=== PATIENT | female | born 1935 | race Caucasian/White ===

== ENCOUNTER 2016-11-26 13:42 | Inpatient (IN) | payer MEDICARE, BC ==
[2016-11-26] MEDS ORDERED: Ondansetron 4 MG Tab.DIS PO PRN (17:37)
[2016-11-26] MEDS ORDERED: Polyethylene Glycol 3350 Powder 17 GM Packet PO PRN (17:37)
[2016-11-26] MEDS ORDERED: Docusate Sodium 100 MG Cap PO PRN (17:37)
[2016-11-26] MEDS ORDERED: Bisacodyl 5 MG Tab PO PRN (17:37)
[2016-11-26] MEDS ORDERED: Temazepam 15 MG Cap PO PRN (17:37)
[2016-11-26] MEDS ORDERED: Acetaminophen 325 MG Tab PO PRN (17:42)
--- NOTE | 2016-11-26 18:25 | HP ---
CHIEF COMPLAINT: Status post left total knee arthroplasty, being admitted to swing bed for continued physical therapy and occupational therapy. HISTORY OF PRESENTING ILLNESS: Mrs. Constanza Hopkins is an 80-year-old female with medical history significant for hypertension, type 2 diabetes mellitus, hyperlipidemia, gastroesophageal reflux disease, osteoarthritis, hypothyroidism, obesity, osteopenia, and history of skin cancer in the past, status post tonsillectomy and adenoidectomy. She is status post left total knee arthroplasty on 11/23/2016 under the spinal anesthesia and currently being admitted to the swing bed. At this time, patient complains of mild pain at the surgical site, which is the left knee, only 2/10 in intensity, dull in nature, aggravated on ambulation, relieved with pain medication, nonradiating type of pain, not associated with any nausea or vomiting. Denies any chest pain. No shortness of breath. No abdominal pain. No fevers. No chills in the last few days. She did not receive any blood transfusion. The patient denied any history of chest pains on exertion. No history of dyspnea on exertion. No history of orthopnea or paroxysmal nocturnal dyspnea. The patient denied any history of hematemesis, hematochezia, or melanotic stools. Normal bowel and bladder habits otherwise. She denied any history of hematemesis, hematochezia, or melanotic stools. REVIEW OF SYSTEMS: A complete review of system including skin, ear, nose, and throat, cardiovascular system, respiratory system, gastrointestinal system, genitourinary system, Hematology, Oncology, Neurology, allergy, Immunology were all evaluated and were negative except for the above-said notes. PAST MEDICAL HISTORY: Significant for hypertension, type 2 diabetes mellitus, hyperlipidemia, gastroesophageal reflux disease, osteopenia, history of skin cancer in the past. PAST SURGICAL HISTORY: Significant for: 1. Carpal tunnel release. 2. Cholecystectomy. 3. Colonoscopy. 4. Tonsillectomy and adenoidectomy. 5. Right total knee arthroplasty in the past. FAMILY HISTORY: Significant for breast cancer in her sister. SOCIAL HISTORY: The patient denied any history of tobacco smoking. No history of alcohol intake. ALLERGIES: The patient noted to have allergies to enalapril, raloxifene, TriCor, and Miacalcin. PHYSICAL EXAMINATION: General: The patient is well oriented to time, place, and person. Follows commands spontaneously. Cardiovascular System: S1, S2 heard with normal intensity. No gallops. Respiratory System: Clear to auscultation bilaterally. No wheeze. No crepitations. Abdomen: Soft. Bowel sounds are positive. Nontender. No rigidity. Extremities: No edema in bilateral lower extremities. Surgical dressing noted on the left knee. Neurology: No gross focal neurological deficit. HOME MEDICATIONS: Reviewed. 1. Ultram 50 mg every 6 hours. 2. Norvasc 5 mg daily. 3. Celebrex 200 mg twice a day. 4. Metformin 500 mg twice a day. 5. Lipitor 40 mg at bedtime. 6. Senokot with docusate sodium 2 tablets twice a day. 7. Omeprazole 20 mg daily. 8. Levothyroxine 150 mcg daily. 9. Hydrochlorothiazide with losartan half a tablet daily. 10.Amaryl 1 mg daily. 11.Aspirin 325 mg daily. 12.Tylenol 650 every 4 hours as needed. LABORATORY DATA: As reviewed from the outlying facility. 1. WBC 9, hemoglobin 11.4, hematocrit 34.8, platelet count 171. 2. Sodium 136, potassium 4.3, chloride 96, bicarb 26, phosphorus 3.3, albumin 3.9, BUN 15, creatinine 0.6. 3. Alkaline phosphatase 50, AST 25, ALT 17, direct bilirubin less than 0.2, protein 6.2. 4. Status post left total knee arthroplasty on 11/23/2016. 5. Hypertension. 6. Hyperlipidemia. 7. Type 2 diabetes mellitus. 8. Obesity. 9. Osteopenia. 10.Gastroesophageal reflux disease. PLAN: 1. Status post left total knee arthroplasty. The patient will be evaluated by Physical Therapy and Occupational Therapy. We will have a daily exercise program while in the swing bed. The patient is using a walker at this time. We will continue the same. The patient denies any ongoing pain. She has mild pain, we will continue with oral pain medications as needed for better control of the pain. 2. Hypertension. The patient's blood pressure seems to be well controlled. Continue with current antihypertensive medication. She usually takes Hyzaar at home, we will continue the same. 3. Type 2 diabetes mellitus. The patient is on glimepiride and metformin. We will continue the same. Check her fingersticks with each meals and have her on supplemental scale insulin as needed for additional coverage of her blood glucose. 4. Hyperlipidemia. She is currently on Lipitor, continue the same. 5. Deep venous thrombosis prophylaxis. We will have her on Lovenox for deep venous thrombosis prophylaxis in the postoperative period. 6. Code status. The patient wants to be full code. [facility] /[id number]
[2016-11-26] MEDS: metFORMIN 500 MG Tab PO SCH (19:22)
[2016-11-26] MEDS: traMADol 50 MG Tab PO SCH (19:23)
[2016-11-26] MEDS: atorvaSTATin 20 MG Tab PO SCH (20:55)
[2016-11-26] MEDS: Celecoxib 100 MG Cap PO SCH (20:56)
[2016-11-26] MEDS: Aspirin 325 MG Tab.EC PO SCH (20:57)
[2016-11-27] MEDS: traMADol 50 MG Tab PO SCH ×5 (00:28→23:50)
[2016-11-27] MEDS: Levothyroxine 150 MCG Tab PO SCH (05:46)
[2016-11-27] MEDS ORDERED: Enoxaparin 30 MG/0.3 ML Syringe SUBCUT SCH (09:00)
[2016-11-27] MEDS: Glimepiride 2 MG Tab PO SCH (10:19)
[2016-11-27] MEDS: Celecoxib 100 MG Cap PO SCH ×2 (10:20→21:04)
[2016-11-27] MEDS: metFORMIN 500 MG Tab PO SCH ×2 (10:20→19:10)
[2016-11-27] MEDS: Omeprazole 20 MG Cap.CR PO SCH (10:20)
[2016-11-27] MEDS: Aspirin 325 MG Tab.EC PO SCH ×2 (10:21→21:04)
[2016-11-27] MEDS: amLODIPine 5 MG Tab PO SCH (10:24)
[2016-11-27] MEDS: HYDROCHLOROTHIAZIDE 12.5 MG PO SCH (10:25)
[2016-11-27] MEDS: LOSARTAN 100 MG PO SCH (10:25)
[2016-11-27] MEDS: Insulin Aspart 100 Units/ML 3 ML Pen SUBCUT SCH ×3 (13:29→21:05)
[2016-11-27] MEDS: atorvaSTATin 20 MG Tab PO SCH (21:05)
[2016-11-28] MEDS: Levothyroxine 150 MCG Tab PO SCH (06:03)
[2016-11-28] MEDS: traMADol 50 MG Tab PO SCH ×3 (06:03→17:46)
[2016-11-28 08:38] LABS: CHLORIDE,CL 100 mmol/L (101-111); SODIUM,NA 138 mmol/L (135-145)
[2016-11-28] MEDS: Omeprazole 20 MG Cap.CR PO SCH (09:26)
[2016-11-28] MEDS: Celecoxib 100 MG Cap PO SCH ×2 (09:26→21:10)
[2016-11-28] MEDS: Insulin Aspart 100 Units/ML 3 ML Pen SUBCUT SCH ×4 (09:26→21:11)
[2016-11-28] MEDS: Glimepiride 2 MG Tab PO SCH (09:27)
[2016-11-28] MEDS: metFORMIN 500 MG Tab PO SCH ×2 (09:27→17:46)
[2016-11-28] MEDS: Aspirin 81 MG Tab.Chew PO SCH (09:27)
[2016-11-28] MEDS: amLODIPine 5 MG Tab PO SCH (09:28)
[2016-11-28] MEDS: HYDROCHLOROTHIAZIDE 12.5 MG PO SCH (09:33)
[2016-11-28] MEDS: LOSARTAN 100 MG PO SCH (09:33)
--- NOTE | 2016-11-28 10:27 | PN ---
DATE: 11/28/2016 SUBJECTIVE: Ms. Constanza Wagner is an 80-year-old female with medical history significant for hypertension, type 2 diabetes mellitus, hyperlipidemia, gastroesophageal reflux disease, osteoarthritis, hypothyroidism. She is status post left total knee arthroplasty on 11/23/2016 under spinal anesthesia, and admitted to the swing bed. For the last 24 hours, the patient was noted to have increased secretions around the left knee joint. She was noted to have more of a serosanguineous discharge from the left knee. She denies any ongoing pain at this time. No fevers. No chills. No chest pain. No shortness of breath. No abdominal pain. No nausea. No vomiting. No diarrhea. REVIEW OF SYSTEMS: Cardiovascular, respiratory, gastrointestinal, neurology, constitutional were all evaluated. PHYSICAL EXAMINATION: Vital Signs: Temperature of 98.6, pulse of 77, blood pressure 132/59, respiratory rate of 20, saturating at 93% on room air. General Appearance: The patient is well oriented to time, place, and person. Follows commands spontaneously. Cardiovascular System: S1, S2 heard with normal intensity. No gallops. Respiratory System: Clear to auscultation bilaterally. No wheeze. No crepitations. Abdomen: Soft. Bowel sounds positive. Nontender. No rigidity. Extremities: No edema in bilateral lower extremities. The patient noted to have a surgical scar with vinnie on the left knee. Serosanguineous drainage noted from the left knee. No evidence of cellulitis noted at this time. Swelling noted around the joint. MEDICATIONS: Reviewed. 1. Continue with Norvasc 5 mg daily. 2. Tylenol 650 every 4 hours as needed for pain. 3. Aspirin 81 mg daily. 4. Lipitor 40 mg at bedtime. 5. Celebrex 200 mg twice a day. 6. Docusate sodium 100 mg twice a day. 7. Amaryl 1 mg daily. 8. NovoLog supplemental scale. 9. Levothyroxine 150 mcg daily. 10.Metformin 500 mg twice a day. 11.Omeprazole 20 mg daily. 12.MiraLax 17 g daily as needed. 13.Tramadol 50 mg every 6 hours for pain. LABORATORY DATA: WBC 7.1, hemoglobin 10.5, hematocrit 32.7, platelet count 213. Blood glucose 152. ASSESSMENT: 1. Status post left total knee arthroplasty complicated with serosanguineous discharge. 2. Hypertension. 3. Type 2 diabetes mellitus. 4. Hyperlipidemia. PLAN: 1. Left total knee arthroplasty. The patient is status post surgery on November 23, and now she is having some serosanguineous discharge. She is noted to have mild hematoma around the knee joint. Discussed with Dr. Farshad Diaz over the phone and advised to continue with dressing with Bakari wrap and pressure dressing to decrease the drainage. We will closely follow the patient. No signs of infection identified at this time, but we will closely follow. Given her history of diabetes, she might be at risk for infection. Willing to do daily dressings at this time or at least twice a day if needed. 2. Hypertension. The patient's blood pressure seems to be well controlled. Continue with current treatment plan. 3. Type 2 diabetes mellitus, improved. Continue with insulin supplemental scale. Continue with oral agents and try to avoid any hyperglycemic or hypoglycemic episodes. 4. Anemia. This is anemia due to acute blood loss. Hemoglobin remained stable at 10.5. Closely follow. 5. Deep vein thrombosis prophylaxis secondary to the hematoma and possible hemarthrosis. We had to decrease the aspirin to 81 mg daily, and since there is increased risk of bleeding, the patient could not be placed on any heparin products for now. We will use SCDs or BEBETO hose for DVT prophylaxis and encourage the patient to ambulate around as much as possible and have her on her leg exercises to avoid any DVTs. [facility] /[id number]
[2016-11-28] MEDS: atorvaSTATin 20 MG Tab PO SCH (21:11)
[2016-11-29] MEDS: traMADol 50 MG Tab PO SCH ×5 (05:06→23:51)
[2016-11-29] MEDS: Levothyroxine 150 MCG Tab PO SCH (06:39)
[2016-11-29] MEDS: Insulin Aspart 100 Units/ML 3 ML Pen SUBCUT SCH ×4 (08:44→22:34)
[2016-11-29] MEDS: Aspirin 81 MG Tab.Chew PO SCH (09:39)
[2016-11-29] MEDS: Celecoxib 100 MG Cap PO SCH ×2 (09:39→22:38)
[2016-11-29] MEDS: Omeprazole 20 MG Cap.CR PO SCH (09:40)
[2016-11-29] MEDS: amLODIPine 5 MG Tab PO SCH (09:40)
[2016-11-29] MEDS: metFORMIN 500 MG Tab PO SCH ×2 (09:40→17:41)
[2016-11-29] MEDS: Glimepiride 2 MG Tab PO SCH (09:42)
[2016-11-29] MEDS: HYDROCHLOROTHIAZIDE 12.5 MG PO SCH (10:48)
[2016-11-29] MEDS: LOSARTAN 100 MG PO SCH (10:48)
--- NOTE | 2016-11-29 13:34 | PN ---
DATE: 11/29/2016 SUBJECTIVE: Mrs. Constanza Wagner is an 80-year-old female with medical history significant for hypertension, type 2 diabetes mellitus, hyperlipidemia, gastroesophageal reflux disease, osteoarthritis, hypothyroidism, status post left total knee arthroplasty on 11/23/2016 under spinal anesthesia and admitted to [facility] bed for continued physical therapy and occupational therapy. For the last 24 hours, the patient continues to have the serosanguineous drainage from the left knee side. Discussed with Dr. Gilmer Diaz, her primary Orthopedic surgeon, who has advised for daily dressings with a Crepe band and pressure dressings to prevent her from bleeding. We did change her aspirin to 81 mg daily. She denies any ongoing chest pain. No shortness of breath. No abdominal pain. No nausea. No vomiting. No diarrhea. No fevers. No chills. The patient denies any increasing pain to the left knee. REVIEW OF SYSTEMS: Cardiovascular, respiratory, gastrointestinal, Neurology, constitutional were all evaluated. PHYSICAL EXAMINATION: Vital Signs: Temperature of 98.4, pulse of 72, blood pressure 145/65, respiratory rate of 20, saturating at 95% on room air. General Appearance: The patient is well oriented to time, place, and person. Follows commands spontaneously. Cardiovascular System: S1, S2 heard with normal intensity. No gallops. Respiratory: Clear to auscultation bilaterally. No wheeze. No crepitations. Abdomen: Soft. Bowel sounds are positive. Nontender. No rigidity. Extremities: Mild edema noted on the left lower extremity and serosanguineous drainage noted from the suture site. [place] intact. No evidence of erythema. No evidence of tenderness around the joints except for mild swelling around the joint on the left knee. Pulses felt well. MEDICATIONS: Reviewed. 1. Continue with Tylenol 650 every 4 hours as needed for pain. 2. Norvasc 5 mg daily. 3. Aspirin 81 mg daily. 4. Lipitor 40 mg at bedtime. 5. Dulcolax 5 mg as needed for constipation. 6. Celebrex 200 mg twice a day. 7. Docusate sodium 100 mg twice a day. 8. Amaryl 1 mg daily. 9. NovoLog supplemental scale. 10.Levothyroxine 150 mcg daily. 11.Metformin 500 mg twice a day. 12.Losartan with hydrochlorothiazide daily. 13.Omeprazole 20 mg daily. 14.MiraLax 17 g oral daily. 15.Temazepam 15 mg at bedtime. 16.Ultram 50 mg every 6 hours as needed for pain. LABORATORY DATA: Reviewed. No new labs ordered for today. The patient did not have any leukocytosis from yesterday's lab. ASSESSMENT: 1. Status post left total knee arthroplasty, complicated with serosanguineous discharge at this time. 2. Hypertension. 3. Hyperlipidemia. 4. Type 2 diabetes mellitus. PLAN: 1. Left knee arthroplasty. Patient had this knee surgery on 11/23 and is currently in swing bed. She is noted to have some serosanguineous discharge from the left knee site. Contact Dr. Farshad Diaz, her primary Orthopedic yesterday and has recommended for continued pressure dressing. We will try to reach his office again to update the patient's situation. She denies any pain. No signs of infection identified at this time. Continue physical therapy and occupational therapy. Continue the pressure dressing and Bakari wrap and we will closely follow. 2. Type 2 diabetes mellitus. The patient noted to be on oral agents and supplemental scale insulin, continue the same. Check her fingersticks with each meals. Have her on supplemental scale insulin also. Try to maintain glycemic levels below 140. 3. Hypertension. The patient's blood pressure seems to be well controlled. Continue with current medications. 4. Deep venous thrombosis prophylaxis. As she is noted to have possible hemarthrosis and serosanguineous discharge, we are not able to give her any heparin products or high dose of aspirin. We had to cut down on aspirin to 81 mg daily to avoid any further bleeding complications on the joint. We will closely follow. The patient is advised to put on BEBETO hose for deep venous thrombosis prophylaxis. She is encouraged to do some exercises for ankle and also ambulate around at least 2 to 3 times a day to avoid any DVTs, which she understands and verbalized the same. [facility] /[id number]
[2016-11-29] MEDS: atorvaSTATin 20 MG Tab PO SCH (22:38)
[2016-11-30] MEDS: Levothyroxine 150 MCG Tab PO SCH (06:31)
[2016-11-30] MEDS: traMADol 50 MG Tab PO SCH ×3 (06:31→18:28)
[2016-11-30] MEDS: Insulin Aspart 100 Units/ML 3 ML Pen SUBCUT SCH ×4 (08:26→22:18)
[2016-11-30] MEDS: Celecoxib 100 MG Cap PO SCH ×2 (09:00→22:20)
[2016-11-30] MEDS: Omeprazole 20 MG Cap.CR PO SCH (09:02)
[2016-11-30] MEDS: metFORMIN 500 MG Tab PO SCH ×2 (09:03→18:28)
[2016-11-30] MEDS: amLODIPine 5 MG Tab PO SCH (09:03)
[2016-11-30] MEDS: Glimepiride 2 MG Tab PO SCH (09:05)
[2016-11-30] MEDS: Aspirin 81 MG Tab.Chew PO SCH (09:05)
[2016-11-30] MEDS: HYDROCHLOROTHIAZIDE 12.5 MG PO SCH (09:07)
[2016-11-30] MEDS: LOSARTAN 100 MG PO SCH (09:07)
[2016-11-30 10:56] LABS: CHLORIDE,CL 100 mmol/L (101-111); SODIUM,NA 137 mmol/L (135-145)
[2016-11-30] MEDS: atorvaSTATin 20 MG Tab PO SCH (22:20)
[2016-12-01] MEDS: traMADol 50 MG Tab PO SCH ×3 (00:02→11:57)
[2016-12-01] MEDS: Levothyroxine 150 MCG Tab PO SCH (06:02)
[2016-12-01 07:56] VITALS: BP 133/62
[2016-12-01] MEDS: Glimepiride 2 MG Tab PO SCH (08:07)
[2016-12-01] MEDS: Aspirin 81 MG Tab.Chew PO SCH (08:07)
[2016-12-01] MEDS: Omeprazole 20 MG Cap.CR PO SCH (08:07)
[2016-12-01] MEDS: Insulin Aspart 100 Units/ML 3 ML Pen SUBCUT SCH ×2 (08:07→11:58)
[2016-12-01] MEDS: Celecoxib 100 MG Cap PO SCH (08:07)
[2016-12-01] MEDS: metFORMIN 500 MG Tab PO SCH (08:07)
[2016-12-01] MEDS: amLODIPine 5 MG Tab PO SCH (08:08)
[2016-12-01] MEDS: LOSARTAN 100 MG PO SCH (08:10)
[2016-12-01] MEDS: HYDROCHLOROTHIAZIDE 12.5 MG PO SCH (08:10)
[2016-12-01] MEDS ORDERED: FLU VAC QS 17-18(4YR UP)CEL/PF 60 MCG/0.5 ML Syringe IM ONE (11:25)
--- NOTE | 2016-12-02 05:10 | DISCH ---
ADMITTING DIAGNOSES: 1. Left knee arthroplasty. 2. Requiring physical therapy and occupational therapy while in the swing bed. DISCHARGE DIAGNOSES: 1. Status post left knee total arthroplasty, complicated with serosanguineous discharge from the left knee site. 2. The patient is able to ambulate with the help of walker with continued physical therapy and occupational therapy. HISTORY OF PRESENTING ILLNESS: Mrs. Constanza Hopkins is an 80-year-old female with medical history significant for hypertension, type 2 diabetes mellitus, hyperlipidemia, gastroesophageal reflux disease, osteoarthritis, hypothyroidism, is status post left total knee arthroplasty on 11/23/2016 under spinal anesthesia and was admitted to the swing bed for continued physical therapy and occupational therapy. The patient had complications with her left total knee arthroplasty, where she was noted to have serosanguineous discharge and possible bleeding into the surgical site. The patient was on aspirin 325 mg twice a day for her DVT prophylaxis but secondary to her bleeding and as recommended by the Orthopedic Surgery, we changed aspirin to 81 mg daily. The patient is encouraged to ambulate around and exercise to avoid any DVTs in the postoperative period. She is also encouraged to use BEBETO hose to avoid any DVTs in the postoperative period. She responded well to the treatment. She is able to ambulate well with the help of walker. Physical Therapy and Occupational Therapy discharged the patient. She is being discharged home in stable condition. She is advised to follow with her orthopedic doctor tomorrow for further evaluation of the serosanguineous discharge, and she is advised to follow with her primary care physician as scheduled. DISCHARGE MEDICATIONS: Include: 1. Tylenol 650 every 4 hours as needed for pain. 2. Aspirin 81 mg daily. 3. Celebrex 200 mg twice a day. 4. Amaryl 1 mg daily. 5. Hydrochlorothiazide with losartan half a tablet daily. 6. Levothyroxine 150 mcg daily. 7. Omeprazole 20 mg daily. 8. Senokot with docusate sodium 2 tablets twice a day. 9. Norvasc 5 mg daily. 10.Lipitor 40 mg at bedtime. 11.Metformin 500 mg twice a day. 12.Tramadol 50 mg every 6 hours as needed for pain. PHYSICAL EXAMINATION: Vital Signs: On the day of discharge, vitals; temperature of 98, pulse of 77, blood pressure 133/62, respiratory rate of 20, saturating at 94% on room air. General Appearance: The patient is well oriented to time, place, and person. Follows commands spontaneously. Cardiovascular System: S1, S2 heard with normal intensity. No gallops. Respiratory System: Clear to auscultation bilaterally. No wheeze. No crepitations. Abdomen: Soft. Bowel sounds positive. Nontender. No rigidity. Extremities: No edema of bilateral lower extremities. Surgical wound noted on the left knee. No erythema and no tenderness noted at this time. No evidence of infection noted at this time. CONDITION ON ADMISSION: Poor. CONDITION ON DISCHARGE: Stable. DISPOSITION: Discharged to home. ACTIVITY: As tolerated. DIET: Cardiac healthy diet. FOLLOWUP: 1. Follow up with orthopedic doctor tomorrow at [place]. 2. Follow up with primary care physician as scheduled. Spent over 35 minutes of time in evaluating and treating this patient and making discharge plans. [facility] /[id number]
== END 2016-12-01 12:29 | disposition home or self-care (01) | DRG 560 ==
LOC: UNDOADMIN 14:30 → DL.MS 14:30
PROVIDERS: ADMIT Internal Medicine; ATTEND Internal Medicine
PROC: 3E0234Z Introduction of Serum, Toxoid and Vaccine into Muscle, Percutaneous Approach (ICD-10-PCS; principal; 2016-11-26)
DX: Z47.1 Aftercare following joint replacement surgery (principal); T84.54XA Infection and inflammatory reaction due to internal left knee prosthesis, initial encounter; D62 Acute posthemorrhagic anemia; Z96.652 Presence of left artificial knee joint; I10 Essential (primary) hypertension; E11.9 Type 2 diabetes mellitus without complications; Z79.84 Long term (current) use of oral hypoglycemic drugs; Z79.899 Other long term (current) drug therapy; E78.5 Hyperlipidemia, unspecified; K21.9 Gastro-esophageal reflux disease without esophagitis; E03.9 Hypothyroidism, unspecified; M19.90 Unspecified osteoarthritis, unspecified site; Z79.82 Long term (current) use of aspirin; Z23 Encounter for immunization
CPT/HCPCS: 36415; 80048; 82962; 85027; 85610; 90674; 97110-GO; 97110-GP; 97165-GO; 97530-GO; A9270-GY; J1815-GY

== ENCOUNTER 2023-04-15 06:43 | Inpatient (IN) | payer MEDICARE, OTHER ==
[2023-04-15 08:27] LABS: BASOPHILS PERCENT AUTO 0.3 % (0.0-1.0); EOSINOPHILS PERCENT AUTO 0.5 % (1.0-3.0); HEMATOCRIT 34.1 % (37.0-47.0); LYMPHOCYTES PERCENT AUTO 16.6 % (20.5-50.1); MEAN CORPUSCULAR HEMOGLOBIN 27.7 pg (27.0-34.0); MEAN CORPUSCULAR HGB CONC 32.3 g/dL (33.0-35.0); MEAN CORPUSCULAR VOLUME 85.9 fL (80-100); MONOCYTES PERCENT AUTO 7.2 % (2-8); NEUTROPHILS PERCENT AUTO 75.4 % (42.2-75.2); PLATELET COUNT,PLT 265 10^3/uL (150-450); RED BLOOD CELL COUNT 3.97 10^6/uL (4.2-5.4); WHITE BLOOD CELL COUNT,WBC 10.5 10^3/uL (5.0-10.0)
[2023-04-15] MEDS: Sodium Chloride 0.9% 10 ML Syringe FLUSH PRN (08:29)
[2023-04-15 08:46] LABS: A/G RATIO 0.79; ALBUMIN 3.1 g/dL (3.4-5.0); ANION GAP 13.3 mEq/L (7-13); BILIRUBIN TOTAL 0.8 mg/dL (0.2-1.0); BUN/CREATININE RATIO 16.3 (No establ ref range); CALCIUM 8.9 mg/dL (8.5-10.1); CREATININE 0.92 mg/dL (0.55-1.02); EST CRCL DRUG DOSING (CG) 37.3 mL/min; POTASSIUM,K 3.3 mmol/L (3.5-5.1)
[2023-04-15] MEDS ORDERED: Bisacodyl 5 MG Tab PO PRN (10:38)
[2023-04-15] MEDS ORDERED: Ondansetron 4 MG/2 ML SDV IVPUSH PRN (10:38)
[2023-04-15] MEDS ORDERED: Docusate Sodium 100 MG Cap PO PRN (10:38)
[2023-04-15] MEDS: Enoxaparin 30 MG/0.3 ML Syringe SUBCUT SCH (11:31)
[2023-04-15] MEDS: Potassium Chloride 10 MEQ Tab.ER PO ONE (17:18)
[2023-04-15] MEDS: metFORMIN 500 MG Tab PO SCH (17:19)
[2023-04-15] MEDS: atorvaSTATin 20 MG Tab PO SCH (21:11)
[2023-04-16] MEDS: Levothyroxine 150 MCG Tab PO SCH (05:44)
[2023-04-16] MEDS: Losartan 50 MG Tab PO SCH (08:30)
[2023-04-16] MEDS: Glimepiride 2 MG Tab PO SCH (08:30)
[2023-04-16] MEDS: Acetaminophen 325 MG Tab PO PRN (20:10)
[2023-04-17] MEDS: Acetaminophen/HYDROcodone 325-5 MG Tab PO PRN (23:39)
[2023-04-18 06:27] LABS: BASOPHILS PERCENT AUTO 0.4 % (0.0-1.0); EOSINOPHILS PERCENT AUTO 1.8 % (1.0-3.0); HEMOGLOBIN 10.7 g/dL (12.0-16.0); LYMPHOCYTES PERCENT AUTO 28.1 % (20.5-50.1); MEAN CORPUSCULAR HEMOGLOBIN 27.4 pg (27.0-34.0); MEAN CORPUSCULAR HGB CONC 31.5 g/dL (33.0-35.0); MEAN CORPUSCULAR VOLUME 87.2 fL (80-100); MONOCYTES PERCENT AUTO 11.3 % (2-8); NEUTROPHILS PERCENT AUTO 58.4 % (42.2-75.2); PLATELET COUNT,PLT 250 10^3/uL (150-450); WHITE BLOOD CELL COUNT,WBC 7.1 10^3/uL (5.0-10.0)
[2023-04-18 06:46] LABS: ANION GAP 10.6 mEq/L (7-13); CALCIUM 8.5 mg/dL (8.5-10.1); CREATININE 0.77 mg/dL (0.55-1.02); EST CRCL DRUG DOSING (CG) 46.37 mL/min; POTASSIUM,K 3.6 mmol/L (3.5-5.1)
[2023-04-18] MEDS: Potassium Chloride 10 MEQ Tab.ER PO ONE (07:59)
[2023-04-18] MEDS: Melatonin 3 MG Tab PO PRN (21:55)
[2023-04-19 10:23] VITALS: BP 151/73; PULSE 98
== END 2023-04-19 10:23 | disposition swing bed (61) | DRG 536 ==
LOC: DL.ED 06:43 → DL.MS 08:56
PROVIDERS: ADMIT Internal Medicine; ATTEND Internal Medicine
DX: S32.592A Other specified fracture of left pubis, initial encounter for closed fracture (principal); S32.512A Fracture of superior rim of left pubis, initial encounter for closed fracture; E11.42 Type 2 diabetes mellitus with diabetic polyneuropathy; E78.00 Pure hypercholesterolemia, unspecified; E11.9 Type 2 diabetes mellitus without complications; I10 Essential (primary) hypertension; Z66 Do not resuscitate; K21.9 Gastro-esophageal reflux disease without esophagitis; M19.90 Unspecified osteoarthritis, unspecified site; E03.9 Hypothyroidism, unspecified; E66.9 Obesity, unspecified; Z88.1 Allergy status to other antibiotic agents; Z68.39 Body mass index [BMI] 39.0-39.9, adult; W18.30XA Fall on same level, unspecified, initial encounter; E87.6 Hypokalemia; Z96.653 Presence of artificial knee joint, bilateral; Z88.8 Allergy status to other drugs, medicaments and biological substances; Z79.899 Other long term (current) drug therapy; Z79.84 Long term (current) use of oral hypoglycemic drugs; Z79.82 Long term (current) use of aspirin; Z68.30 Body mass index [BMI] 30.0-30.9, adult; Z98.49 Cataract extraction status, unspecified eye; Z98.890 Other specified postprocedural states; Z90.49 Acquired absence of other specified parts of digestive tract; Z97.8 Presence of other specified devices; W19.XXXA Unspecified fall, initial encounter
CPT/HCPCS: 36415; 80048; 80053; 85025; 93005; 97161-GP; 97165-GO; 99222; 99232; 99238; 99284; 99285; A9270-GY; J1650; J3490

== ENCOUNTER 2023-07-25 15:03 | Emergency (ER) | payer MEDICARE, OTHER ==
[2023-07-25] MEDS: Ondansetron 4 MG/2 ML SDV IV ONE (15:12)
[2023-07-25 15:16] VITALS: BP 120/61; PULSE 125
[2023-07-25] MEDS: Sodium Chloride 0.9% 10 ML Syringe FLUSH PRN (15:32)
[2023-07-25 15:38] LABS: BASOPHILS PERCENT AUTO 0.3 % (0.0-1.0); EOSINOPHILS PERCENT AUTO 0.3 % (1.0-3.0); HEMOGLOBIN 10.4 g/dL (12.0-16.0); LYMPHOCYTES PERCENT AUTO 21.8 % (20.5-50.1); MEAN CORPUSCULAR HEMOGLOBIN 25.9 pg (27.0-34.0); MEAN CORPUSCULAR HGB CONC 31.5 g/dL (33.0-35.0); MEAN CORPUSCULAR VOLUME 82.3 fL (80-100); MONOCYTES PERCENT AUTO 5.8 % (2-8); NEUTROPHILS PERCENT AUTO 71.8 % (42.2-75.2); PLATELET COUNT,PLT 440 10^3/uL (150-450); RED BLOOD CELL COUNT 4.01 10^6/uL (4.2-5.4); WHITE BLOOD CELL COUNT,WBC 12.4 10^3/uL (5.0-10.0)
[2023-07-25 15:56] LABS: LACTIC ACID 2.6 mmol/L (0.4-2.0)
[2023-07-25 16:00] LABS: ALBUMIN 2.8 g/dL (3.4-5.0); ANION GAP 15.4 mEq/L (7-13); BILIRUBIN TOTAL 0.6 mg/dL (0.2-1.0); C-REACTIVE PROTEIN 1.21 ng/dL (<=0.50); CREATININE 1.04 mg/dL (0.55-1.02); EST CRCL DRUG DOSING (CG) 35.66 mL/min; MAGNESIUM 1.1 mg/dL (1.8-2.4); POTASSIUM,K 3.4 mmol/L (3.5-5.1); PROTEIN TOTAL,TP 6.7 g/dL (6.4-8.2); TSH ULTRASENSITIVE 4.78 uIU/mL (0.36-3.74)
[2023-07-25 16:05] LABS: A/G RATIO 0.72
[2023-07-25] MEDS: Sodium Chloride 0.9% 500 ML IV SCH (16:21)
[2023-07-25] MEDS: Iopamidol 612 MG/ML 100 ML Bottle IVPUSH ONE (16:33)
[2023-07-25] MEDS: Piperacillin/Tazobactam 4.5 GM in Sodium Chloride 0.9% 100 ML IV ONE (16:40)
[2023-07-25] MEDS: Magnesium Sulfate/Water 2 GM in Premix Bag 1 BAG IV ONE (17:10)
[2023-07-25 17:47] LABS: APPEARANCE,URINE CLEAR (CLEAR); BILIRUBIN,URINE NEGATIVE (NEGATIVE); COLOR,URINE YELLOW (YELLOW); GLUCOSE,URINE NEGATIVE (NEGATIVE); KETONES,URINE NEGATIVE (NEGATIVE); LEUKOCYTE ESTERASE,URINE NEGATIVE (NEGATIVE); NITRITE,URINE NEGATIVE (NEGATIVE); OCCULT BLOOD,URINE NEGATIVE (NEGATIVE); PROTEIN,URINE NEGATIVE (NEGATIVE); UROBILINOGEN,URINE 0.2 mg/dL (0.2-1.0)
== END 2023-07-25 19:20 ==
LOC: DL.ED 15:03
DX: K63.89 Other specified diseases of intestine (principal); I10 Essential (primary) hypertension; E78.00 Pure hypercholesterolemia, unspecified; K21.9 Gastro-esophageal reflux disease without esophagitis; E03.9 Hypothyroidism, unspecified; E11.9 Type 2 diabetes mellitus without complications; Z88.8 Allergy status to other drugs, medicaments and biological substances; Z79.890 Hormone replacement therapy; Z79.899 Other long term (current) drug therapy
CPT/HCPCS: 36415; 71045; 74177; 80053; 81003; 82150; 83605; 83615; 83690; 83735; 83880; 84145; 84443; 84484; 85025; 86140; 87040; 93005; 96365; 96366; 96367; 96375; 99285; J2405; J2543; J3475; J3490; J7040; Q9967